=== PATIENT | female | born 2000 | race Two or more races ===

== ENCOUNTER 2024-04-25 11:56 | Observation (INO) | payer MEDICAID ==
[~2024-04-25] VITALS: Ht 162.6 cm; Wt 81.6 kg
--- NOTE | 2024-04-25 13:46 | DVH ---
LIMITED OB ULTRASOUND > 14 WKS: HISTORY: low back pain, cramping TECHNIQUE: Multiple real-time grayscale images of the gravid uterus with duplex Doppler color flow an d M-mode spectral analysis. TRANSDUCER: Transabdominal. FINDINGS: IUP single live fetus at 25 weeks 1 day based on composite averages of the BPD, head circumference, a bdominal circumference and femur length heart rate 150 beats per minute FRANCIS 12.1 cm Cervix appears closed and measures 3.8 cm. Maternal left Presentation Fundal Placenta without previa or abruption. IMPRESSION: IUP single live fetus at 25 weeks 1 day AUA corresponding to an GALINA of 08/07/24.
--- NOTE | 2024-04-25 19:26 | DVHDS2 ---
Physician Discharge Progress N Final Diagnosis: no care low back pain Operations or Procedures: Operations or Procedures S: 23yo IUP@25.1wks based on LMP (GALINA: 08/07/24). Pt presents to OB triage with c/o low back pain and no care. Denies UCs/LOF/VB/PETERS/vision changes/RUQ pain. +FM. Pt denies UTI or vaginitits s/sx. OB hx: #1: P C/S with preeclampsia #2: current O: VSS UA wnl NST reactive (verified by 2 RNs) TOCO: no UCs seen or palpated by RN OB sono: WNL A: 23yo IUP@25.1wks No care Low back pain P: D/C home [facility]KC/PTL/PreE precautions reviewed Dr. Stroud consulted, agrees with POC. Other Interventions Other Interventions [place] [id number] Ph: [phone] DIAGNOSTIC IMAGING Diagnostic Imaging Report : [id number] Signed PATIENT: BARBIE PATEL ACCT: [id number] UNIT: [id number] : 2000 LOC: [facility] ROOM / BED: TRIAGE2 / A AGE / SEX: 23 / F ADM STATUS: ADM IN SERVICE 1156 ORDERING PHYSICIAN: VIBHA STROUD DO PROCEDURE(s): OBLTD - OBSTERICAL LIMITED REASON: low back pain, cramping ORDER NUMBER(s): [id number], ACCESSION NUMBER(s): [id number] LIMITED OB ULTRASOUND > 14 WKS: HISTORY: low back pain, cramping TECHNIQUE: Multiple real-time grayscale images of the gravid uterus with duplex Doppler color flow and M-mode spectral analysis. TRANSDUCER: Transabdominal. FINDINGS: IUP single live fetus at 25 weeks 1 day based on composite averages of the BPD, head circumference, abdominal circumference and femur length heart rate 150 beats per minute FRANCIS 12.1 cm Cervix appears closed and measures 3.8 cm. Maternal left Presentation Fundal Placenta without previa or abruption. IMPRESSION: IUP single live fetus at 25 weeks 1 day AUA corresponding to an GALINA of 08/07/24. ATED BY: EDMUNDO DODD MD DICTATED DATE/TIME: 04/25/241344 SIGNED BY: EDMUNDO DODD MD SIGNED DATE/TIME: 04/25/241344 CC: Condition on Discharge: Stable Disposition: Home Discharge Instructions: Diet: Regular Activity: No Restrictions, As Tolerated Medications: see med list Follow Up Care: Specialist: Pt directed to [facility] OB office to make appt to establish care with Dr. Stroud Discharge Statement: "Patient was advised to return to the ER or call 911 if any headaches, dizziness, shortness of breath, chest pain, abdominal pain, bleeding, fevers, or worsening of medical condition. Patient was counseled about treatment plan, medications, possible side effects, patientverbalized understanding. All questions were answered to the best of my ability. This discharge took greater then 30 minutes in planning, reviewing documentation, counseling the patient, and discussing with other team members." ANH MONTERROSO CNM Apr 25, 2024 19:26
== END 2024-04-25 14:15 | disposition home or self-care (01) ==
LOC: LDRP 11:56
PROVIDERS: ADMIT Obstetrics & Gynecology; ATTEND Obstetrics & Gynecology
DX: O99.891 Other specified diseases and conditions complicating pregnancy (principal); M54.50 Low back pain, unspecified; Z79.899 Other long term (current) drug therapy; Z98.890 Other specified postprocedural states; Z3A.25 25 weeks gestation of pregnancy
CPT/HCPCS: 59025; 76815; 81002; 94760; G0378